=== PATIENT | male | born 1955 | race Caucasian/White ===

== ENCOUNTER 2020-03-20 20:43 | Inpatient (IN) | payer MEDICARE, OTHER ==
[~2020-03-20] VITALS: Ht 185.4 cm; Wt 107.0 kg
--- NOTE | ~2020-03-20 | EKG ---
[facility] [address] [facility] [facility] [place], [place] [address] Draft EK completed, results pending confirmation PATIENT NAME: PREMA AVILA Electrocardiogram DATE OF : 57 PHYSICIAN: PRELIMINARY REPORT #: [id number] REPORT IS CONFIDENTIAL AND NOT TO BE RELEASED WITHOUT AUTHORIZATION
[2020-03-20] MEDS ORDERED: LANTUS100 UNITS/ SUB-Q ×2 (21:15→21:17)
[2020-03-20] MEDS ORDERED: NOVOLIN N100 UNIT/1 SUB-Q (21:16)
[2020-03-20] MEDS ORDERED: NOVOLOG100 UNIT/2 SUB-Q ×2 (21:18→21:19)
[2020-03-20] MEDS ORDERED: LIPITOR40 MG PO (21:19)
[2020-03-20] MEDS ORDERED: LISINOPRIL10 MG PO (21:20)
[2020-03-20] MEDS ORDERED: DEPLIN-ALGAL O1 EAC1 PO (21:20)
[2020-03-20] MEDS ORDERED: OMEPRAZOLE20 MG PO (21:21)
[2020-03-20] MEDS ORDERED: TRADJENTA5 MG PO (21:21)
[2020-03-20] MEDS ORDERED: DEPAKOTE500 MG PO (21:22)
[2020-03-20] MEDS ORDERED: BENZTROPINE MESY1 MG PO (21:22)
--- NOTE | 2020-03-21 02:05 | NUR ---
PT AWAKE AND ALERT AT ED. PT WAS BROUGHT TO CCU VIA STRETCHER WITH STAFF MIDWIFE WITH BELONGINGS. ASSESSMENT COMPLETE, LABS DRAWN. PT WAS GIVEN FOOD DUE TO BEING HUNGRY. PT SALINE LOCKED IV BOLUS HAD COMPLETED IN THE ED. PT REPORTED A TOOTH-ACHE OF 7/10 PAIN. PRN TYLENOL WAS ADMINISTERED. PT HAD A BLOODY NOSE, TISSUE WAS USED TO PLUG NOSE, PT STATES HE GETS BLOODY NOSES ON OCCASION. PT REPORTED NO FURTHER NEEDS WHEN ASKED. BED IN LOWEST POSITION, CALL LIGHT WITHIN REACH, PT NOW WATCHING TV WITH STAFF MIDWIFE IN ROOM. WILL CONTINUE PLAN OF CARE.
--- NOTE | 2020-03-21 03:52 | NUR ---
PT LAYING ON RIGHT SIDE SLEEPING. RESPIRATIONS UNLABORED. CAREGIVER IN ROOM AWAKE ON CELLPHONE. PT. LEFT UNDISTURBED. WILL CONTINUE PLAN OF CARE.
--- NOTE | 2020-03-21 04:51 | NUR ---
RESPONDED TO PT. COUGHING IN ROOM. PT GIVEN PRN MEDICATION FOR COUGH (SEE MAR). PT REPORTS SHORTNESS OF BREATH AFTER COUGHING FIT. PT. ASSESSED AND LABS DRAWN. AFTERWARDS PT STILL LOOKED SHORT OF BREATH BUT PT. DENIED FEELING SHORT OF BREATH. SPO2 REMAINED IN THE HIGH 90'S PT STILL ON ROOM AIR. PT REPORTS NO FURTHER NEEDS AT THIS TIME. SPO2 97%, ON ROOM AIR, RR OF 25. WILL CONTINUE PLAN OF CARE. BED IN LOWEST POSITION, CALL LIGHT WITHIN REACH.
--- NOTE | 2020-03-21 06:20 | NUR ---
RESPONDED TO PT CALL LIGHT. PT WANTED SOMETHING TO DRINK. DIET SODA BROUGHT TO PT. PT ASSESSED. PT IV WAS OUT OF RIGHT FOREARM AND WAS INTACT, SHEETS WERE BLOODY. PT STATES HE DOESNT KNOW HOW IV CAME OUT. IV INTACT AND DC'D. NEW IV INSERTED ON LEFT FOREARM. PT TOLERATED WELL. SHEETS CHANGED. LAB DRAWN. PT REPORTS NO FURTHER NEEDS AT THIS TIME ASIDE FROM ORDERING HIS BREAKFAST WHICH WILL BE ORDERED. PT NOW LAYING IN BED WATCHING TV WITH CAREGIVER AT BEDSIDE. WILL CONTINUE PLAN OF CARE. CALL LIGHT IN REACH, BED IN LOWEST POSITION.
--- NOTE | 2020-03-21 07:15 | NUR ---
Report received, orders acknowledged. Patient sleeping in bed, respirations even and unlabored. [facility] staff in room with patient. Call light within reach.
[2020-03-21] MEDS ORDERED: INVEGA SUS117 MG/0.7 IM (07:44)
--- NOTE | 2020-03-21 07:45 | EKG ---
[facility] [address] [facility] [place], [place] [address] Signed Sinus tachycardia Right bundle branch block Abnormal ECG No previous ECGs available Confirmed by CHAD TINOCO MD ([id number]) on 03/21/2020 7:45:20 AM Electronically Signed By: CHAD TINOCO MD 03/21/20 0745 PATIENT NAME: PREMA AVILA Electrocardiogram DATE OF : 57 PHYSICIAN: CHAD TINOCO MD REPORT #: [id number] REPORT IS CONFIDENTIAL AND NOT TO BE RELEASED WITHOUT AUTHORIZATION
--- NOTE | 2020-03-21 08:30 | NUR ---
Patient laying in bed, respirations even and unlabored. Vital signs taken, assessment complete. AM medications given. Patient reports 8/10 pain in his teeth, prn tylenol. Patient up to toilet independently, denies SOB or dizziness with ambulation, steady on feet. Returns to bed, breakfast delivered. BG of 208. 3 units of insulin lispro given, along with 40 units of insulin glargine. Patient requests diet pepsi, which is accommodated. [facility] staff in room at bedside. Patient denies further needs, call light within reach.
--- NOTE | 2020-03-21 10:10 | NUR ---
Patient sleeping in bed on right side, respirations even and unlabored. SpO2 of 95% on RA. Patient rouses easily to voice, Egnar Reina staff at bedside. Call light within reach.
--- NOTE | 2020-03-21 10:20 | NUR ---
Patient up to toilet independently, voids 500 mls of urine. Returns to bed, denies further needs. Call light within reach.
--- NOTE | 2020-03-21 12:10 | NUR ---
Patient sitting up in bed, respirations even and unlabored. SpO2 of 97% on RA, HR in the 80's. BG of 238, 5 units of insulin lispro given. Patient denies further needs, call light within reach.
[2020-03-21] MEDS ORDERED: ACETAMINOPHEN325 M1 PO (13:51)
--- NOTE | 2020-03-21 13:54 | NUR ---
Patient up to shower independently, steady on feet. No SOB noted. Medications given (see MAR). Patient now laying in bed watching tv. Denies needs, call light within reach.
--- NOTE | 2020-03-21 14:30 | NUR ---
Patient temp of 100.6 noted, 650 mg of tylenol given. Patient shaking in bed and states "I feel cold." Warm blankets provided. Caregiver in room at bedside.
--- NOTE | 2020-03-21 17:00 | NUR ---
Patient febrile at 102.1 degrees. Patient laying in bed watching tv. Dinner delivered, patient denies needs at this time. Call light within reach.
--- NOTE | 2020-03-21 17:28 | NUR ---
THIS RN ABLE TO GIVE PT HIS INSULIN MEDS WHEN HE CAME TO THE DOOR. PT STEADY ON HIS FEET AND ELENI, PTS CAREGIVER IN ROOM AND ABLE TO ASSIST PT TO THE DOOR WITH ALL THE CABLES.
--- NOTE | 2020-03-21 18:00 | NUR ---
Patient febrile at 102.[address] Bond notified, no new orders. Will continue to monitor.
--- NOTE | 2020-03-21 18:47 | NUR ---
THIS RN INTO PTS ROOM TO START PT ON THE CONTINOUS IV FLUID. PT STATES THAT HE FEELS A LOT BETTER SINCE COMING TO THE HOSPITAL. PT DOES STATE THAT HE STILL REQUIRES HELP STANDING UP. PT HAS A CAREGIVER IN ROOM.
--- NOTE | 2020-03-21 19:51 | NUR ---
REPORT RECEIVED FROM ADRIANE RN, WILL CONTINUE PLAN OF CARE.
--- NOTE | 2020-03-21 21:43 | NUR ---
PT LAYING IN BED AWAKE AND ORIENTED WITH CDARETAKER AT BEDSIDE. PT REPORTS FEELING CHILLS, TEMP WAS TAKEN AND WAS 101.0. PRN TYLENOL GIVEN. WHEN ASKED PT. REPORTED NO PAIN OR NAUSEA. MEDICATIONS ADMINISTERED ORDERED (SEE MAR). INSULIN ADMINISTERED PER SLIDING SCALE. IV FLUIDS INFUSING AT ORDERED RATE. PT TAKEN OFF OF CARDIAC MONITORS PER ORDERS. PT REPORTS NO FURTHER NEEDS WHEN ASKED. CALL LIGHT IN REACH BY PT., BED IN LOWEST POSITION. WILL CONTINUE PLAN OF CARE.
--- NOTE | 2020-03-21 23:38 | NUR ---
PT LAYING IN BED. PT STATED THAT HE HAD GONE TO THE BATHROOM WITH THE HELP OF HIS STROKE BELT SANDER OPERATOR TO URINATE. PT NOW LAYING IN BED WATCHING TV WITH STROKE BELT SANDER OPERATOR AT BEDSIDE. IV FLUIDS INFUSING ORDERED. TEMPERATURE RECHECKED AND WAS 98.6. PT WAS GIVEN A SNACK AND DIET SODA HE HAD ASKED FOR THEM. PT REPORTED NO FURTHER NEEDS WHEN HE WAS ASKED. WILL CONTINUE PLAN OF CARE. CALL LIGHT IN REACH, BED IN LOWEST POSITION.
--- NOTE | 2020-03-22 03:10 | NUR ---
PT SLEEPING ON RIGHT SIDE. RESPIRATIONS EVEN AND UNLABORED. INSURANCE OFFICE MANAGER IN ROOM ON BEDSIDE CHAIR AWAKE. PT. LEFT UNDISTURBED. WILL CONTINUE PLAN OF CARE.
--- NOTE | 2020-03-22 05:19 | NUR ---
RESPONDED TO CALL LIGHT. PT WAS SLUMPED OVER ON BED WITH ENVIRONMENT COORDINATOR AT BEDSIDE. ACCORDING TO THE ENVIRONMENT COORDINATOR AND PT. THE PT. HAD GOTTEN UP TO GO TO THE BATHROOM TO VOID. AFTER STARTING TO WALK BACK THE PT. HAD TO SIT DOWN ON THE FOOT OF THE BED HE FELT DIZZY AND WEAK. THIS RN AND THE ENVIRONMENT COORDINATOR HELPED THE PT. BACK UP ON HIS FEET AND REPOSITIONED HIM ON THE BED. THE PT. HAD A PALLOR COLOR AND WAS DROWSY. AYSHA GRAJEDA WAS CALLED FOR ASSISTANCE. DR. MASCORRO WAS NOTIFIED. LABS WERE DRAWN AND THE PT IV FLUIDS WERE INCREASED PER DR MASCORRO'S ORDERS. SEE MAR. PRN TYLENOL WAS ALSO GIVEN PT. TEMP WAS 101.2. PT REPORTED NO FURTHER NEEDS AFTER THE EVENT. PT WAS MORE ALERT AND ORIENTED AFTERWARDS. PT NOW LAYING IN BED RESTING WATCHING TV. ENVIRONMENT COORDINATOR AT BEDSIDE. WILL CONTINUE PLAN OF CARE. CALL LIGHT ON PT WITHIN REACH, BED IN LOWEST POSITION.
--- NOTE | 2020-03-22 06:18 | NUR ---
RESPONDED TO PT CALL LIGHT. PT INFORMED ME HIS IV PUMP WAS BEEPING AND HE WANTED SOME DIET SODA. SODA BROUGHT TO PT. IV BOLUS OF LR COMPLETE. PT NOW HAS LR INFUSING AT 75ML/HR. MEDICATIONS ADMINISTERED (SEE MAR). TEMP NOW 98.9. PT REPORTS NO PAIN AFTER PRN TYLENOL WELL. PT STATES HE STILL FEELS WEAK AND CONGESTED. PT ALERT AND ORIENTED X3. PT REPOSITIONED IN BED WITH HELP OF POWER BRAKE OPERATOR. PT REPORTS NO FURTHER NEEDS AT THIS TIME. WILL CONTINUE PLAN OF CARE. CALL LIGHT IN REACH, BED IN LOWEST POSITION.
--- NOTE | 2020-03-22 07:30 | NUR ---
Report received, orders acknowledged. Patient sitting up in bed, alert and oriented. Patient waves at nurse through glass door. Denies needs, call light within reach.
--- NOTE | 2020-03-22 08:00 | NUR ---
Patient sitting up in bed, alert and oriented. Patient able to state location, year, month, day of week, and event. Vital signs taken, assessment complete. BG of 169, a total of 5 units of insulin lispro given (1 unit SS, 4 units with meal). AM medications given. Patient able to swallow and take PO meds. Breakfast delivered, ate 90% of meal. Patient denies feeling weak or dizzy this AM after syncopal episode last night. Importance of sitting on edge of bed for several minutes prior to ambulation discussed, patient agreeable. Patient states "I got up real fast this morning. Made me dizzy." LR infusing at 75 mls/hr. Caregiver in room at bedside. Denies needs, call light within reach.
--- NOTE | 2020-03-22 10:20 | NUR ---
Patient requests can of pop, which is accommodated. Caregiver reports patient up to toilet approximately 30 minutes prior. Patient had sat on edge of bed for several minutes prior to ambulation. Patient reports slight dizziness with ambulation but much better. Patient states "Hey, when are you going to come in and talk to me?" Patient is told RN will be in room to deliver lunch and check blood sugar around noon. Call light within reach.
--- NOTE | 2020-03-22 11:44 | NUR ---
Patient sitting up in bed watching tv. Caregiver in room at bedside. Patient gives a thumbs-up through the glass door, denies needs. Call light within reach.
--- NOTE | 2020-03-22 12:40 | NUR ---
Dr. Bond in room to assess patient and discuss POC. Plan to do orthostatics test after lunch, patient agreeable.
[2020-03-22] MEDS ORDERED: HALLS3.2 MG MM (13:46)
[2020-03-22] MEDS ORDERED: KETOCONAZOLE120 ML TOP (13:48)
[2020-03-22] MEDS ORDERED: MULTIVITAMINS1 EAC8 PO (13:55)
[2020-03-22] MEDS ORDERED: BISMATROL262 MG/15 PO (14:00)
--- NOTE | 2020-03-22 14:57 | NUR ---
Patient laying in bed, states "I feel horrible." Temp of 100.2, 650 mg of tylenol given. Patient lower left arm appears swollen and is tender to the touch. Warm compress applied to left arm. IV site D/C'd. Will look for new IV site. Orthostatic hypotension test complete. Results in next note. Patient to toilet, able to ambulate independently. Voids 700 mls. Returns to bed, warm compress to left arm. Caregiver in room at bedside.
--- NOTE | 2020-03-22 15:09 | NUR ---
ORTHOSTATIC HYPOTENSION TEST Laying - BP of 132/82 (98), HR of 85 Standing at 1 minute - BP of 127/85 (99), HR of 101 Standing at 3 minutes - BP of 132/75 (93), HR of 107
--- NOTE | 2020-03-22 17:37 | NUR ---
Patient sitting up in bed watching tv. Vital signs taken, assessment complete. Temp of 98.6. BG of 274, 9 units of insulin lispro given (5 per SS, 4 units w/meals) and 33 units of insulin lantus. Patient requests to take a shower, which will be accomodated due to decreasing dizziness with ambulation. Patient compliant with sitting at edge of bed prior to ambulation for several minutes. Dinner delivered, patient denies needs at this time, call light within reach.
--- NOTE | 2020-03-22 18:30 | NUR ---
Patient up to shower, independently with no dizziness noted. New linens put on bed and new patient gown put in place. Patient saline locked due to negative orthostatics test. Patient returned to bed, denies needs. Call light within reach.
--- NOTE | 2020-03-22 21:30 | NUR ---
PT LAYING IN BED AWAKE AND ORIENTED. PT MEDICATION ADMINISTERED ORDERED (SEE MAR). PT SALINE LOCKED. 5 UNITS OF INSULIN GIVEN PER SLIDING SCALE. WHEN ASKED PT STATES HE HAS NO PAIN. PT AFEBRILE WITH A TEMP OF 99.1 AND PT REPORTS NO FEELINGS OF CHILLS. PT REPORTS NO FURTHER NEEDS AT THIS TIME, WILL CONTINUE PLAN OF CARE. CALL LIGHT IN REACH, BED IN LOWEST POSITION, WILL CONTINUE PLAN OF CARE.
--- NOTE | 2020-03-22 23:10 | NUR ---
PT SLEEPING ON RIGHT SIDE. RESPIRATIONS NOTED AND ARE EVEN AND UNLABORED. BAR MACHINE OPERATOR IN ROOM WELL ON THE BEDSIDE CHAIR. PT ON ROOM AIR, SPO2 AT 95%. PT LEFT UNDISTURBED. WILL CONTINUE PLAN OF CARE.
--- NOTE | 2020-03-23 00:25 | NUR ---
RESPONDED TO PT CALL LIGHT. PT STATES HE HAD TO GO URINATE. THE PT WAS HELPED UP. PT LEFT IN SITTIN POSITION FOR A TIME HE STATED HE FELT LIGHTHEADED GETTING UP. AFTER IT SUBSIDED PT RIGIDLY WALKED OVER TO VOID IN THE BATHROOM TOILET. PT WAS ABLE TO WASH HIS HANDS AND WALK BACK ON HIS OWN. PT STATED HE FELT LIGHTHEADED WHEN HE WAS LAYING IN THE BED. THE PT'S HR ELEVEATED TO THE 110-120'S DURING THE EVENT AND WENT BACK DOWN TO THE 90'S ONCE HE WAS BACK IN THE BED. SPO2 REMAINED IN THE 90'S ON ROOM AIR. PT REPORTS NO PAIN WHEN ASKED AND NO SHORTNESS OF BREATH. PT GIVEN A DRINK HE REQUESTED. PT REPORTS NO FURTHER NEEDS WHEN ASKED. PT NOW IN BED WITH LIGHTS OFF, TECHNICIAN TELECOMMUNICATION SYSTEMS IN THE ROOM AT BEDSIDE CHAIR. WILL CONTINUE PLAN OF CARE. BED IN LOWEST POSITION, CALL LIGHT WITHIN REACH.
--- NOTE | 2020-03-23 02:30 | NUR ---
PT IN BED LAYING IN BED SLEEPING, RESPIRATIONS UNLABORED. PT LEFT UNDISTURBED. POINTER MACHINE OPERATOR IN ROOM AT BEDSIDE CHAIR. WILL CONTINUE PLAN OF CARE.
--- NOTE | 2020-03-23 04:23 | NUR ---
RESPONDED TO PT CALL LIGHT. PT HAD TO VOID. PT HELPED UP OUT OF BED. HE WAS ABLE TO WALK OVER TO BATHROOM UNASSISTED AND BACK TO THE BED. HR WAS IN THE 120-130'S DURING THIS TIME. PT HAD TO SIT DOWN FOR A WHILE HE STATED HE FELT LIGHTHEADED. PT GIVEN PRN TYLENOL FOR HIS ELEVATED TEMPERATURE (SEE VS). PT ASSESSED, LABS DRAWN. PT REPORTS NO FURTHER NEEDS AT THIS TIME. PT NOW LAYING IN BED WITH CORKING MACHINE OPERATOR IN ROOM. WILL CONTINUE PLAN OF CARE, CALL LIGHT IN REACH, BED IN LOWEST POSITION.
--- NOTE | 2020-03-23 06:32 | NUR ---
PT LAYING IN BED AWAKE AND ALERT. ORDERED MEDICATIONS ADMINISTERED (SEE MAR). PT ASKED TO WALK AROUND, NON SLIP SOCKS WERE PLACED ON PT AND HE MADE A FEW LAPS AROUND HIS ROOM. HR WENT UP TO THE 110'S. PT DENIED DIFFICULTY BREATHING BUT TOWARDS THE END STATED HE WAS FEELING LIGHT HEADED. PT GOT BACK INTO THE BED AND IS NOW LAYING IN BED. BLOOD BANK WORKER IN ROOM AT BEDSIDE. PT REPORTS NO FURTHER NEEDS AT THIS TIME, WILL CONTINUE PLAN OF CARE. BED IN LOWEST POSITION, CALL LIGHT WITHIN REACH.
--- NOTE | 2020-03-23 09:05 | NUR ---
RECIEVED REPORT FROM NIGHT NURSE AND CARE RESUMED. PATIENT ASSESSMENT COMPLETED. TEMP. OF 99.3. PT. REPORTS 9/10 PAIN IN RUQ AND RLQ. A FEW MINUTES LATER THE PATIENT DENIED PAIN IN THIS AREA. RIGHT IV SITE SALINE LOCKED. MORNING MEDS GIVEN. BLOOD GLUCOSE WAS 168 AND 5 UNITS TOTAL OF HUMALOG GIVEN. PT. RECEIVED BREAKFAST AND REQUESTED TO HAVE A SHOWER AFTER LUNCH. PT. LEFT RESTING IN BED WITH INDUSTRIAL MAINTENANCE TECH AT HIS SIDE.
--- NOTE | 2020-03-23 10:08 | NUR ---
PATIENT REPORTS 8/10 PAIN IN HIS TEETH. TEMP IS 98.5. TYLENOL GIVEN. IV SITE FLUSHES WELL AND WNL. PT. RESTING IN BED WITH POWER TECHNICIAN AT BEDSIDE.
--- NOTE | 2020-03-23 10:56 | NUR ---
PATIENT HEAD TEACHER PADS REPLACED. PATIENT DENIES PAIN. PT. LEFT RESTING IN BED WITH SENIOR TECHNICAL MANAGER AT BEDSIDE.
--- NOTE | 2020-03-23 12:30 | NUR ---
PATIENT ASSESSMENT COMPLETED. BLOOD GLUCOSE WAS 166 AND GIVEN 7 UNITS TOTAL OF HUMALOG. PT. DENIES PAIN AND IS ORIENTED AND ALERT. TEMP. 88.4. IV SITE WNL AND SALINE LOCKED. LUNCH GIVEN. PT DENIES FURTHER NEED AND LEFT RESTING IN BED WITH AVIATION TACTICAL READINESS OFFICER AT BEDSIDE. PLAN TO SHOWER AFTER LUNCH.
--- NOTE | 2020-03-23 13:15 | NUR ---
PATIENT ASKED FOR ICE AND REQUESTED TO TAKE SHOWER AT 1400.
--- NOTE | 2020-03-23 13:42 | NUR ---
PT UNDER PRECAUTIONS, CG AT BS, DR MASCORRO IN. WILL FOLLOW
--- NOTE | 2020-03-23 14:20 | NUR ---
PATIENT STATED HE WAS HEARING "TRANSMITTERS" AND THAT HE HAD HEARD THEM THE LAST TIME HE WAS IN THE HOSPITAL FOR A TYLENOL OVERDOSE.
--- NOTE | 2020-03-23 14:39 | NUR ---
PATIENT UP TO THE SHOWER WITH STANDBY ASSIST. HE SHOWERED STANDING INDEPENDENTLY AND TOLERATED WELL WITH MILD DIZZINESS. PT. BRUSHED HIS TEETH AND AMBULATED BACK TO BED INDEPENDENTLY. PT. DENIES PAIN. TEMP. 98.4. VOIDED 300ML CLEAR YELLOW URINE IN TOILET. LEFT RESTING IN BED WITH FRONT OFFICE ADMINISTRATOR AT BEDSIDE.
--- NOTE | 2020-03-23 16:00 | NUR ---
Called and spoke with the RN from the [facility]. She states Bill can return tomorrow. They will just need written orders. Updated he has had some fevers, they have been treated with Tylenol. He is not requiring 02 at this time. Will call and confirm time tomorrow. Dr. Bond notified.
--- NOTE | 2020-03-23 16:49 | EKG ---
[facility] [address] [facility] [place] [address] Signed Normal sinus rhythm Right bundle branch block Abnormal ECG When compared with ECG of 22-MAR-2020 04:04, (Unconfirmed) ST no longer depressed in Lateral leads Confirmed by STANLEY MASCORRO MD ([id number]) on 03/23/2020 4:49:11 PM Electronically Signed By: STANLEY MASCORRO MD 03/23/20 1649 PATIENT NAME: PREMA AVILA Electrocardiogram DATE OF : 57 PHYSICIAN: STANLEY MASCORRO MD REPORT #: [id number] REPORT IS CONFIDENTIAL AND NOT TO BE RELEASED WITHOUT AUTHORIZATION
--- NOTE | 2020-03-23 17:38 | NUR ---
PATIENT ASSESSMENT COMPLETED AND PT. BROUGHT HIS DINNER. PT. TEMP IS 99.4. WILL CONTINUE TO MONITOR TEMP. VOIDED 400ML CLEAR YELLOW URINE IN TOILET. PT. LEFT RESTING WITH BERRY PICKER BEDSIDE.
--- NOTE | 2020-03-23 17:41 | NUR ---
PATIENT TEMP IS 100.4 AND PT. SHIVERING. PT GIVEN PRN TYLENOL.
--- NOTE | 2020-03-23 21:25 | NUR ---
PT LAYING IN BED WITH CONSULTING MANAGER AT BEDSIDE. PT IS AWAKE AND ORIENTED. PT GIVEN ORDERED MEDICATIONS AND GIVEN 5 UNITS OF INSULIN PER SLIDING SCALE (SEE MAR). PT PROVIDED WITH ICE WATER. PT REPORTS NO SHORTNESS OF BREATH. WHEN ASSESSING PT STATED HE FELT DIZZY WHILE TAKING DEEP BREATHS FOR LUNG ASSESSMENT. PT RECOVERED QUICKLY AFTER FINISHING THE ASSESSMENT. PT REPORTS NO FURTHER NEEDS WHEN ASKED. CALL LIGHT IN REACH, BED IN LOWEST POSITION, WILL CONTINUE PLAN OF CARE.
--- NOTE | 2020-03-23 23:00 | NUR ---
PT SLEEPING ON SIDE. RESPIRATIONS EVEN AND UNLABORED. PUBLIC SERVICE DIRECTOR IN ROOM WITH PT AT BEDSIDE CHAIR. PT LEFT UNDISTURBED. WILL CONTINUE PLAN OF CARE.
--- NOTE | 2020-03-23 23:59 | NUR ---
PT COMING BACK FROM BATHROOM AND WAS SITTING AT BED. PT STATED HE WAS FEELING DIZZY. PT SAT AT BED FOR A FEW MINUTES BEFORE LAYING BACK DOWN. PT ASSESSED. PRN TYLENOL GIVEN FOR ELEVATED TEMPERATURE (SEE MAR). PT REPORTS NO PAIN OR CHILLS WHEN ASKED. PT REPORTS NO DIFFICULTY BREATHING WHEN ASKED. PT ON ROOM AIR, SPO2 93%. PT REPORTS NO FURTHER NEEDS AT THIS TIME AND WAS PROVIDED WITH WATER. WILL CONTINUE PLAN OF CARE. CALL LIGHT IN REACH, BED IN LOWEST POSITION. LEAD PRESSER IN ROOM WITH PT AT BEDSIDE CHAIR.
--- NOTE | 2020-03-24 01:17 | NUR ---
PT IN BED SLEEPING. RESPIRATIONS EVEN AND UNLABORED. SPO2 93%, RR 23. PT ON ROOM AIR. WATERFRONT DIRECTOR IN ROOM AT BEDSIDE CHAIR. PT LEFT UNDISTURBED. WILL CONTINUE PLAN OF CARE.
--- NOTE | 2020-03-24 03:35 | NUR ---
PT IN BED SLEEPING. RESPIRATIONS EVEN AND UNLABORED. PT ON ROOM AIR, SPO2 AT 92%. COMPUTER REPAIR INSTRUCTOR IN ROOM WITH PT AT BEDSIDE CHAIR. PT LEFT UNDISTURBED. WILL CONTINUE PLAN OF CARE.
--- NOTE | 2020-03-24 04:10 | NUR ---
RESPONDED TO PT CALL LIGHT. PT STATED THAT HE HAD USED THE RESTROOM. PT REPORTS FEELING WEAK AND HAVING DIFFICULTY SITTING UP TO STAND. PT ALSO REPORTS FEELING LIGHTHEADED STILL AFTER WALKING TO BATHROOM AND BACK TO VOID. PT REPORTS NO DIFFICULTY BREATHING. PT HR WAS ELEVATED WHILE UP TO THE 130'S. PT ASSESSED AND IV FLUSHED. PT PROVIDED WITH FRESH ICE WATER HE REQUESTED. PT REPORTS NO PAIN WHEN ASKED. WILL CONTNINUE PLAN OF CARE. CALL LIGHT IN REACH, BED IN LOWEST POSITION. EARLY INTERVENTION SPECIALIST IN ROOM AT BEDSIDE CHAIR.
--- NOTE | 2020-03-24 06:58 | NUR ---
PT LAYING IN BED SLEEPING. PT GIVEN ORDERED MEDICATIONS. PT REPORTED FEELING SHORT OF BREATH AFTER BEING ASKED. SPO2 WAS AROUND 92, PT PLACED ON 2L O2 NC. PT TEMP WAS 99.6. PT REPORTS NO FURTHER NEEDS, WILL CONTINUE PLAN OF CARE.
--- NOTE | 2020-03-24 08:00 | NUR ---
PATIENT ASSESSMENT COMPLETED. TEMP WAS 99.9. PT. ON ROOM AIR AND O2 SAT 91%. PT. DENIES PAIN AND REPORTS HE HAS BEEN USING INCENTIVE SPIROMETER. REFUSED ANA HOSE. BREAKFAST IN THE ROOM AND PATIENT LEFT WITH ECONOMIST RESEARCH ASSISTANT AT BEDSIDE.
--- NOTE | 2020-03-24 09:40 | NUR ---
DR. MASCORRO IN TO SEE THE PATIENT.
--- NOTE | 2020-03-24 11:15 | NUR ---
PATIENT CHECKED ON THROUGH DOOR. LUNCH ORDERED AND PATIENT DENIES PAIN AND SOB. ON RA WITH O2 SAT 93%.
--- NOTE | 2020-03-24 12:58 | NUR ---
PATIENT ASSESSMENT COMPLETED. GIVEN 11 TOTAL UNITS OF HUMALOG. TEMP WAS 99.4. PT. DENIES PAIN AND IS ORIENTED. IV SITE FLUSHES WELL AND WNL. PT. HAS AMBULATED 3X TO THE BATHROOM THIS MORNING AND DENIES DIZZINESS WITH AMBULATION. 02 SAT 93% ON RA. PT. EDUCATED ON PRONING.PT. LEFT RESTING IN BED WITH FOUNTAIN BRUSH ASSEMBLER AT BEDSIDE.
--- NOTE | 2020-03-24 14:15 | NUR ---
PATIENT COMPLETED A SHOWER WITH BAR CATCHER AND CARGIVER. TOLERATED AMBULATING AND STANDING WELL AND DENIES DIZZINESS. ASSISTED WITH REMOVING FAMILY ENGAGEMENT SPECIALIST PADS.
--- NOTE | 2020-03-24 14:50 | NUR ---
PATIENT DISCHARGED IN WHEELCHAIR WITH PERSONAL BELONGINGS AND DISCHARGE PAPERWORK. PICKED UP BY WHEELCHAIR VAN. PT. LEFT ON ROOM AIR. IV SITE DC'D PRIOR. TOMMY WAS CALLED WITH DISCHARGE INFO AND GIVEN REPORT.
--- NOTE | 2020-03-24 15:22 | NUR ---
Set pt. up for a shower. Caregiver assisted him with the shower. Bed linens changed. no other needs at this time.
--- NOTE | 2020-03-24 15:49 | NUR ---
PATIENT ASSESSMENT COMPLETED. PT. TEMP 100.4. TYLENOL GIVEN. PT. DENIES PAIN, SOB, AND DIZZINESS WITH AMBULATION. LUNGS DIM IN BASES BILAT. O2 SAT IS 90% ON RA. PT. HAD A LARGE BM IN THE TOILET. PT. REPORTS HE HAS BEEN LYING ON HIS SIDES AND CANNOT PRONE ON HIS STOMACH. PT. LEFT RESTING IN BED WITH TARGETING ACQUISITION OFFICER AT BEDSIDE.
--- NOTE | 2020-03-24 20:50 | NUR ---
SHIFT REPORT RECEIVED FROM AYSHA CALLAWAY. ASSESSMENT COMPLETED AT THIS TIME, LIMITED DUE TO PAPR PPE. PT DENIES PAIN. REPORTS OCCASIONAL SOB WITH ACTIVITY, REMAINS ON RA. VITAL SIGNS STABLE, AFEBRILE. PT REPORTS FEELING LESS DIZZY WHEN STANDING. VOIDING QS. IV INTACT, PATENT, AND SALINE LOCKED. CB, 4 UNITS SLIDING SCALE ADMINISTERED. PT REPORTS MILD UPSET STOMACH, MILK AND CRACKERS PROVIDED PER REQUEST. CAREGIVER REMAINS AT BEDSIDE. CALL LIGHT AND BELONGINGS WITHIN REACH.
--- NOTE | 2020-03-24 23:14 | NUR ---
PT APPEARS TO BE SLEEPING AT THIS TIME, NO APPARENT DISTRESS. RESPIRATIONS EVEN AND UNLABORED. CAREGIVER REMAINS AT BEDSIDE.
--- NOTE | 2020-03-25 00:37 | NUR ---
PT CONTINUES TO SLEEP AT THIS TIME. NO APPARENT DISTRESS, RESPIRATIONS EVEN AND UNLABORED ON ROOM AIR. CAREGIVER REMAINS AT BEDSIDE. WILL ALLOW FOR REST AND CONTINUE TO MONITOR.
--- NOTE | 2020-03-25 01:15 | NUR ---
PT AWAKE TO USE BATHROOM. VITAL SIGNS OBTAINED. TEMP 99.2, WILL CONTINUE TO MONITOR. PT CONTINUES TO DENY PAIN, NO COMPLAINTS OF SOB AT THIS TIME. CAREGIVER AT BEDSIDE.
--- NOTE | 2020-03-25 04:18 | NUR ---
PT SLEEPING AT THIS TIME, NO APPARENT DISTRESS. RESPIRATIONS EVEN AND UNLABORED. CAREGIVER AT BEDSIDE.
--- NOTE | 2020-03-25 06:20 | NUR ---
PT UP TO BATHROOM WITH SBA FROM CAREGIVER, VOIDED AND RETURNED TO BED. PT REPORTS MILD SOB AND DIZZINESS WITH ACTIVITY. DENIES PAIN, PRN TYLENOL GIVEN FOR TEMP OF 100.1. REMAINS ON RA, SATS 92%. NO OTHER CHANGES FROM PREVIOUS ASSESSMENT. BREAKFAST ORDER CALLED TO KITCHEN.
--- NOTE | 2020-03-25 08:40 | NUR ---
PT IS ALERT AND ORIENTED X4, PT DENIES PAIN, NAUSEA, AND SOB AT THIS TIME. IV SITE IS INTACT, NO REDNESS OR SWELLING NOTED, FLUSHES EASILY. PT REPORTS FEELING ANXIOUS ABOUT GOING HOME. ENCOURAGED PT, AND DISCUSSED SUPPORTS THAT ARE IN PLACE AT HOME. PT VITALS WNL. PT SITTING UP IN BED EATING BREAKFAST.
--- NOTE | 2020-03-25 10:22 | NUR ---
PT REQUESTED NEW LINENS FOR BED, WAS GIVEN LINENS, THEN CHANGES HIS OWN BEDDING. PT STEADY ON HIS FEET, CAREGIVER IS AT THE BEDSIDE.
[2020-03-25] MEDS ORDERED: LANTUS100 UNITS/ SUB-Q ×2 (11:26)
[2020-03-25] MEDS ORDERED: NOVOLOG100 UNIT/2 SUB-Q (11:27)
[2020-03-25] MEDS ORDERED: TESSALON PERLE100 MG PO (11:28)
[2020-03-25] MEDS ORDERED: TYLENOL EXTRA500 MG PO (11:28)
--- NOTE | 2020-03-25 12:00 | NUR ---
Dc summary, orders faxed to Rn at the [facility]. Called and updated, pt may return with the cg which has stayed in his room. Orders accepted. Rn notified pt can return. [place] with signed orders and dc summary given.
--- NOTE | 2020-03-25 12:36 | NUR ---
PT REMAINS ALERT AND ORIENTED X4, ALL VITALS ARE WNL. IV SITE IN LEFT ARM REMOVED IN PREPARATION FOR DISCHARGE HOME. THE TIP OF THE CATH WAS INTACT, NO SWELLING OR REDNESS AT SITE, PT CHYNA REMOVAL WELL. PT IS FINISHED EATING LUNCH, AND IS READY TO PUT ON HIS OWN CLOTHES. CAREGIVER AT THE BEDSIDE.
--- NOTE | 2020-03-25 12:52 | NUR ---
FULL REPORT CALLED TO AYSHA KIMBROUGH, AT [facility] [phone]. ALL QUESTIONS ANSWERED.
--- NOTE | 2020-03-25 12:54 | NUR ---
PT LEAVING CCU TO GO HOME WITH CAREGIVER. PT TRANSFERS VIA WHEEL CHAIR, [employer]. PT HAS ALL PERSONAL BELONGINGS WITH HIM.
== END 2020-03-25 13:00 | disposition home or self-care (01) | DRG 177 ==
LOC: ED 20:43 → CCU 23:39
PROVIDERS: ADMIT Internal Medicine; ATTEND Internal Medicine
DX: U07.1 COVID-19 (principal); J12.89 Other viral pneumonia; F20.0 Paranoid schizophrenia; E87.5 Hyperkalemia; E11.22 Type 2 diabetes mellitus with diabetic chronic kidney disease; I12.9 Hypertensive chronic kidney disease with stage 1 through stage 4 chronic kidney disease, or unspecified chronic kidney disease; N18.30 Chronic kidney disease, stage 3 unspecified; F41.9 Anxiety disorder, unspecified; E78.5 Hyperlipidemia, unspecified; I95.1 Orthostatic hypotension; Z79.899 Other long term (current) drug therapy; Z79.4 Long term (current) use of insulin
CPT/HCPCS: 71045; 80048; 80053; 80164; 81001; 82550; 82803; 83036; 83605; 83735; 84484; 85025; 93005; 93010; 99285-25; J1815; J2405; J7030; J7121

== ENCOUNTER 2020-04-02 15:29 | Emergency (ER) | payer MEDICARE, OTHER ==
[~2020-04-02] VITALS: Ht 185.4 cm; Wt 106.6 kg
[~2020-04-02 15:29] MED LIST: ACETAMINOPHEN325 M1 PO; BENZTROPINE MESY1 MG PO; BISMATROL262 MG/15 PO; DEPAKOTE500 MG PO; DEPLIN-ALGAL O1 EAC1 PO; HALLS3.2 MG MM; INVEGA SUS117 MG/0.7 IM; KETOCONAZOLE120 ML TOP; LANTUS100 UNITS/ SUB-Q; LIPITOR40 MG PO; LISINOPRIL10 MG PO; MULTIVITAMINS1 EAC8 PO; NOVOLIN N100 UNIT/1 SUB-Q; NOVOLOG100 UNIT/2 SUB-Q; OMEPRAZOLE20 MG PO; TESSALON PERLE100 MG PO; TRADJENTA5 MG PO; TYLENOL EXTRA500 MG PO
--- OUTSIDE RECORDS SUMMARY | 2020-04-02 15:32 | XMS ---
PreManage Notification: PREMA AVILA Security Manager Enrollment Events No recent Security Events currently on file CRITERIA MET - [facility] - 2 Visits in 30 Days CARE PROVIDERS BEN TEE Physician Hogshead Builder Current PHONE: Unknown Kae has no Care Guidelines for this patient. Juan VISIT COUNT (12 MO.) 2 [facility] TOTAL 2 NOTE: Visits indicate total known visits. ED/UCC VISIT TRACKING (12 MO.) 04/02/2020 15:29 [facility] [place] TYPE: Emergency COMPLAINT: - BLOOD SUGAR PROBLEM 03/20/2020 20:44 [facility] [place] TYPE: Emergency COMPLAINT: - ALTERED LOC INPATIENT VISIT TRACKING (12 MO.) 03/20/2020 23:39 [facility] [place] TYPE: Critical Care COMPLAINT: - HYPERKALEMIA/ACUTE KIDNEY INJ/COVID DIAGNOSES: - Other viral pneumonia - Type 2 diabetes mellitus with diabetic chronic kidney disease - Chronic kidney disease, stage 3 unspecified - COVID-19 - Paranoid schizophrenia - Orthostatic hypotension - Hyperlipidemia, unspecified - group home (current) use of insulin - Hyperkalemia - Anxiety disorder, unspecified - Hypertensive chronic kidney disease with stage 1 through stage 4 chronic kidney disease, or unspecified chronic kidney disease - Other assisted (current) drug therapy [email or web address]
== END 2020-04-02 18:39 | disposition home or self-care (01) ==
LOC: ED 15:29
DX: E11.65 Type 2 diabetes mellitus with hyperglycemia (principal); F41.9 Anxiety disorder, unspecified; F20.9 Schizophrenia, unspecified; Z79.4 Long term (current) use of insulin; Z79.899 Other long term (current) drug therapy
CPT/HCPCS: 80053; 85025; 96374; 99284-25; J1815; J7030

== ENCOUNTER 2020-04-24 19:33 | Emergency (ER) | payer MEDICARE, OTHER ==
[~2020-04-24] VITALS: Ht 185.4 cm; Wt 106.6 kg
--- OUTSIDE RECORDS SUMMARY | 2020-04-24 19:36 | XMS ---
PreManage Notification: PREMA AVILA Security Laboratory Development Technician Events No recent Security Events currently on file CRITERIA MET - [facility] - 2 Visits in 30 Days CARE PROVIDERS BEN TEE Physician Certified Health Education Specialist Current PHONE: Unknown TERE [facility] 04/05/2020-Current PHONE: [phone] Kae has no Care Guidelines for this patient. Juan VISIT COUNT (12 MO.) [address] [place] [address] TOTAL 3 NOTE: Visits indicate total known visits. ED/UCC VISIT TRACKING (12 MO.) 04/24/2020 19:34 [facility] [place] TYPE: Emergency COMPLAINT: - POSSIBLE ALERGIC REACTION TO SHOT 04/02/2020 15:29 [facility] [place] TYPE: Emergency COMPLAINT: - BLOOD SUGAR PROBLEM DIAGNOSES: - Anxiety disorder, unspecified - buttermaker (current) use of insulin - Schizophrenia, unspecified - Other termite technician (current) drug therapy - Type 2 diabetes mellitus with hyperglycemia 03/20/2020 20:44 [facility] [place] TYPE: Emergency COMPLAINT: - ALTERED LOC INPATIENT VISIT TRACKING (12 MO.) 03/20/2020 23:39 [facility] [place] TYPE: Critical Care COMPLAINT: - HYPERKALEMIA/ACUTE KIDNEY INJ/COVID DIAGNOSES: - Other viral pneumonia - Type 2 diabetes mellitus with diabetic chronic kidney disease - Chronic kidney disease, stage 3 unspecified - COVID-19 - Paranoid schizophrenia - Orthostatic hypotension - Hyperlipidemia, unspecified - residential (current) use of insulin - Hyperkalemia - Anxiety disorder, unspecified - Hypertensive chronic kidney disease with stage 1 through stage 4 chronic kidney disease, or unspecified chronic kidney disease - Other longterm (current) drug therapy [email or web address]
[2020-04-24] MEDS ORDERED: LANTUS SOL100 UNIT/1 SUB-Q ×2 (20:08)
[2020-04-24] MEDS ORDERED: NOVOLOG FL100 UNIT/1 SUB-Q (20:09)
== END 2020-04-24 21:54 | disposition home or self-care (01) ==
LOC: ED 19:33
DX: T88.1XXA Other complications following immunization, not elsewhere classified, initial encounter (principal); R53.1 Weakness; T50.Z95A Adverse effect of other vaccines and biological substances, initial encounter; Z79.4 Long term (current) use of insulin; Z79.899 Other long term (current) drug therapy; E11.9 Type 2 diabetes mellitus without complications
CPT/HCPCS: 80053; 81001; 85025; 99284; J7030

== ENCOUNTER 2020-08-08 11:02 | Emergency (ER) | payer MEDICARE, OTHER ==
[~2020-08-08] VITALS: Ht 185.4 cm; Wt 108.9 kg
[~2020-08-08 11:02] MED LIST changes: +LANTUS SOL100 UNIT/1 SUB-Q; +NOVOLOG FL100 UNIT/1 SUB-Q
[2020-08-08] MEDS ORDERED: NITROGLYCERIN0.4 MG SL (11:31)
[2020-08-08] MEDS ORDERED: ACETAMINOPHEN500 MG PO (11:32)
[2020-08-08] MEDS ORDERED: METOPROLOL SUCC25 MG PO (11:33)
[2020-08-08] MEDS ORDERED: BRILINTA90 MG PO (11:33)
[2020-08-08] MEDS ORDERED: ST. JOSEPH ASPI81 MG PO (11:34)
[2020-08-08] MEDS ORDERED: L-METHYLFOLATE15 M1 PO (11:36)
[2020-08-08] MEDS ORDERED: VITAMIN D350 MC3 PO (11:39)
--- NOTE | 2020-08-08 16:34 | EKG ---
[facility] [address] [facility] [place] [address] Signed Normal sinus rhythm Right bundle branch block T wave abnormality, consider inferior ischemia Abnormal ECG When compared with ECG of 22-MAR-2020 04:05, T wave inversion more evident in Inferior leads Confirmed by SARAY BERNSTEIN DO ([id number]) on 08/08/2020 4:33:56 PM Electronically Signed By: SARAY BERNSTEIN DO 08/08/20 1634 PATIENT NAME: PREMA AVILA Electrocardiogram DATE OF : 57 PHYSICIAN: SARAY BERNSTEIN DO REPORT #: [id number] REPORT IS CONFIDENTIAL AND NOT TO BE RELEASED WITHOUT AUTHORIZATION
== END 2020-08-08 13:34 | disposition home or self-care (01) ==
LOC: ED 11:02
DX: R06.00 Dyspnea, unspecified (principal); E11.9 Type 2 diabetes mellitus without complications; Z79.899 Other long term (current) drug therapy; Z79.4 Long term (current) use of insulin; Z79.82 Long term (current) use of aspirin
CPT/HCPCS: 71045; 80053; 83880; 84484; 85025; 85379; 93005; 93010; 99285-25

== ENCOUNTER 2021-04-11 13:37 | Emergency (ER) | payer MEDICARE, OTHER ==
[~2021-04-11] VITALS: Ht 185.4 cm; Wt 110.1 kg
[~2021-04-11 13:37] MED LIST changes: +ACETAMINOPHEN500 MG PO; +BRILINTA90 MG PO; +L-METHYLFOLATE15 M1 PO; +METOPROLOL SUCC25 MG PO; +NITROGLYCERIN0.4 MG SL; +ST. JOSEPH ASPI81 MG PO; +VITAMIN D350 MC3 PO
[2021-04-11] MEDS ORDERED: FENOFIBRATE134 MG PO (14:53)
[2021-04-11] MEDS ORDERED: L-METHYLFOLATE15 M1 PO (14:54)
[2021-04-11] MEDS ORDERED: BRILINTA90 MG PO (14:55)
== END 2021-04-11 16:49 | disposition home or self-care (01) ==
LOC: ED 13:37
DX: R04.0 Epistaxis (principal); E11.9 Type 2 diabetes mellitus without complications; Z79.899 Other long term (current) drug therapy; Z79.4 Long term (current) use of insulin; Z79.82 Long term (current) use of aspirin
CPT/HCPCS: 30903; 99283-25

== ENCOUNTER 2023-11-25 17:44 | Emergency (ER) | payer MEDICARE, OTHER ==
[~2023-11-25] VITALS: Ht 185.4 cm; Wt 110.0 kg
[~2023-11-25 17:44] MED LIST changes: +FENOFIBRATE134 MG PO
--- OUTSIDE RECORDS SUMMARY | 2023-11-25 17:45 | XMS ---
PreManage Notification: PREMA AVILA Security Planning Intern Events No recent Security Events currently on file CRITERIA MET - [facility] PROVIDERS -, [facility] Dentist: Bridge Maintenance Worker [facility] PHONE: [phone] -[place]- Dentist: Bridge Maintenance Worker [facility] Dental [facility] PHONE: [phone] Kae has no Care Guidelines for this patient. Juan VISIT COUNT (12 MO.) 1 [facility] TOTAL 1 NOTE: Visits indicate total known visits. ED/UCC VISIT TRACKING (12 MO.) 11/25/2023 17:44 [facility] [place] TYPE: Emergency COMPLAINT: - DENTAL PAIN INPATIENT VISIT TRACKING (12 MO.) No inpatient visits to display in this time frame [id number]
[2023-11-25] MEDS ORDERED: HUMALOG100 UNIT/2 SUB-Q (18:01)
[2023-11-25] MEDS ORDERED: INVEGA SUS234 MG/1.5 IM (18:01)
[2023-11-25] MEDS ORDERED: FENOFIBRATE160 MG PO (18:02)
[2023-11-25] MEDS ORDERED: BENZTROPINE ME0.5 MG PO (18:02)
[2023-11-25] MEDS ORDERED: TRULICITY3 MG/0.5 M SQ (18:02)
[2023-11-25] MEDS ORDERED: DOCUSATE SODIU100 MG PO (18:03)
[2023-11-25] MEDS ORDERED: GABAPENTIN100 MG PO (18:03)
[2023-11-25] MEDS ORDERED: PENICILLIN V P500 MG PO (18:37)
[2023-11-25] MEDS ORDERED: PENICILLIN V POTASSIUM 500 MG TAB PO ONE (18:45)
[2023-11-25 18:54] VITALS: BP 144/81
== END 2023-11-25 18:54 | disposition home or self-care (01) ==
LOC: ED 17:44
DX: K08.89 Other specified disorders of teeth and supporting structures (principal); E11.9 Type 2 diabetes mellitus without complications; I25.2 Old myocardial infarction; F41.9 Anxiety disorder, unspecified; F20.9 Schizophrenia, unspecified; Z79.4 Long term (current) use of insulin; Z79.82 Long term (current) use of aspirin; Z79.899 Other long term (current) drug therapy

== ENCOUNTER 2024-01-29 17:59 | Emergency (ER) | payer MEDICARE, OTHER ==
[~2024-01-29] VITALS: Ht 185.4 cm; Wt 124.7 kg
[~2024-01-29 17:59] MED LIST changes: +BENZTROPINE ME0.5 MG PO; +DOCUSATE SODIU100 MG PO; +FENOFIBRATE160 MG PO; +GABAPENTIN100 MG PO; +HUMALOG100 UNIT/2 SUB-Q; +INVEGA SUS234 MG/1.5 IM; +PAXLOVID 150-11 EAC1 PO; +PENICILLIN V P500 MG PO; +TRULICITY3 MG/0.5 M SQ
--- OUTSIDE RECORDS SUMMARY | 2024-01-29 18:06 | XMS ---
PreManage Notification: PREMA AVILA Security Administrative Aide Events No recent Security Events currently on file CRITERIA MET - [facility] - 2 Visits in 30 Days CARE PROVIDERS -, [facility] Dentist: Gunnery/Ordnance Officer Current [place] PHONE: [phone] -[place]- Dentist: Gunnery/Ordnance Officer [facility] PHONE: [phone] Kae has no Care Guidelines for this patient. Juan VISIT COUNT (12 MO.) [address] [place] [address] TOTAL 3 NOTE: Visits indicate total known visits. ED/UCC VISIT TRACKING (12 MO.) 01/29/2024 17:[address] [facility] [place] TYPE: Emergency COMPLAINT: - CHEST PAIN 01/07/2024 17:32 [facility] [place] TYPE: Emergency COMPLAINT: - WEAKNESS DIAGNOSES: - Anxiety disorder, unspecified - COVID-19 - Fever, unspecified - senior living (current) use of aspirin - senior living (current) use of insulin - Old myocardial infarction - Other long term care administrator (current) drug therapy - Schizophrenia, unspecified - Type 2 diabetes mellitus without complications 11/25/2023 17:[address] [facility] [place] TYPE: Emergency COMPLAINT: - DENTAL PAIN DIAGNOSES: - Anxiety disorder, unspecified - senior living (current) use of aspirin - termite treater helper (current) use of insulin - Old myocardial infarction - Other long term care administrator (current) drug therapy - Other specified disorders of teeth and supporting structures - Schizophrenia, unspecified - Type 2 diabetes mellitus without complications INPATIENT VISIT TRACKING (12 MO.) No inpatient visits to display in this time frame [email or web address]
[2024-01-29] MEDS ORDERED: NITROGLYCERIN 0.4 MG SUBL SL PRN ×2 (18:15→20:45)
[2024-01-29 18:22] LABS: BASOPHILS 0.5 % (0-2); EOSINOPHILS 2.3 % (0-6); HEMATOCRIT 32.5 % (35.0-50.0); HEMOGLOBIN 11.3 g/dL (12.0-18.0); LYMPHOCYTES 21.5 % (24-44); MCH 32.9 (27-36); MCHC 34.7 g/dl (30-36); MONOCYTES 9.3 % (0-12); NEUTROPHILS 66.4 % (39-80); PLATELET COUNT 180 K/uL (140-440); RBC 3.42 M/ul (4.3-5.7); RDW 13.4 (10.5-15.0)
[2024-01-29 18:32] LABS: INR 1.01 (0.80-1.30); PROTIME 12.9 Sec (11.2-14.2)
[2024-01-29 18:41] LABS: PARTIAL THROMBOPLASTIN TIME 20.7 Sec (22.9-41.3)
[2024-01-29 18:44] LABS: ALBUMIN 3.4 g/dL (3.4-5.0); ALBUMIN/GLOBULIN RATIO 0.85 (1.1-2.4); ANION GAP 13.1 (7-21); BILIRUBIN, TOTAL 0.2 ng/dL (0.2-1.0); BUN/CREATININE RATIO 14.76 (6.0-28.6); CALCIUM 9.3 mg/dL (8.5-10.1); CREATININE, SERUM 2.71 mg/dL (0.70-1.30); MAGNESIUM 1.8 mg/dL (1.8-2.4); POTASSIUM 4.1 mmol/L (3.5-5.1); PROTEIN, TOTAL 7.4 g/dL (6.4-8.2)
[2024-01-29] MEDS ORDERED: HEPARIN SOD,PORK IN 0.45% NACL 500 ML IV SCH (20:15)
[2024-01-29] MEDS ORDERED: HEParin SOD (PORCINE) 5,000 UNIT/ML VIAL IV ONE (20:15)
[2024-01-29] MEDS ORDERED: NITROGLYCERIN 50MG/D5W 250 ML IV SCH (20:45)
[2024-01-29] MEDS ORDERED: LACTATED RINGER'S 1,000 ML IV SCH (20:45)
[2024-01-29] MEDS ORDERED: FAMOTIDINE 20 MG/ 2 ML VIAL IV ONE (20:45)
[2024-01-29 21:29] LABS: BILIRUBIN, URINE NEGATIVE (negative); BLOOD/HGB, URINE NEGATIVE (Negative); KETONE, URINE NEGATIVE (Negative); LEUK ESTERASE, URINE NEGATIVE (negative); NITRITE, URINE NEGATIVE (negative); PH, URINE 5.5 (5-7)
[2024-01-29 21:54] LABS: AMPHETAMINES, URINE NEGATIVE (NEGATIVE); BARBITURATES, URINE NEGATIVE (NEGATIVE); BENZODIAZEPINE, URINE NEGATIVE (NEGATIVE); BUPRENORPHINE, URINE NEGATIVE (NEGATIVE); CANNABINOID, URINE NEGATIVE (NEGATIVE); COCAINE, URINE NEGATIVE (NEGATIVE); ECSTASY, URINE NEGATIVE (NEGATIVE); FENTANYL, URINE NEGATIVE (NEGATIVE); METHADONE, URINE NEGATIVE (NEGATIVE); OPIATES, URINE NEGATIVE (NEGATIVE); OXYCODONE, URINE NEGATIVE (NEGATIVE); PHENCYCLIDINE, URINE NEGATIVE (NEGATIVE)
[2024-01-30] VITALS: BP 140/79
--- NOTE | 2024-01-31 21:38 | EKG ---
[facility] [address] [facility] [place] [address] Signed Normal sinus rhythm Right bundle branch block T wave abnormality, consider inferior ischemia Abnormal ECG When compared with ECG of 07-JAN-2024 17:44, Sinus rhythm has replaced Wide QRS rhythm Vent. rate has decreased BY 41 BPM Confirmed by Cedric Figueroa MD ([id number]) on 01/31/2024 9:38:16 PM Electronically Signed By: CEDRIC FIGUEROA DO 01/31/24 2138 PATIENT NAME: AUSTINPREMA Electrocardiogram DATE OF : 57 PHYSICIAN: CEDRIC FIGUEROA DO REPORT #: [id number] REPORT IS CONFIDENTIAL AND NOT TO BE RELEASED WITHOUT AUTHORIZATION
--- NOTE | 2024-01-31 21:39 | EKG ---
[facility] [address] [facility] [place] [address] Signed Normal sinus rhythm Right bundle branch block T wave abnormality, consider inferior ischemia Abnormal ECG When compared with ECG of 29-JAN-2024 18:02, (Unconfirmed) No significant change was found Confirmed by Cedric Figueroa MD ([id number]) on 01/31/2024 9:39:09 PM Electronically Signed By: CEDRIC FIGUEROA DO 01/31/24 2139 PATIENT NAME: AUSTINPREMA Electrocardiogram DATE OF : 57 PHYSICIAN: CEDRIC FIGUEROA DO REPORT #: [id number] REPORT IS CONFIDENTIAL AND NOT TO BE RELEASED WITHOUT AUTHORIZATION
== END 2024-01-30 | disposition short-term general hospital (02) ==
LOC: ED 17:59
PROVIDERS: Emergency Medicine; Internal Medicine
DX: I21.4 Non-ST elevation (NSTEMI) myocardial infarction (principal); E11.9 Type 2 diabetes mellitus without complications; I25.2 Old myocardial infarction; Z85.828 Personal history of other malignant neoplasm of skin; Z79.4 Long term (current) use of insulin; Z79.85 Long-term (current) use of injectable non-insulin antidiabetic drugs; Z79.82 Long term (current) use of aspirin; Z79.899 Other long term (current) drug therapy
CPT/HCPCS: 36415; 71045; 80053; 80307; 81003; 83735; 83880; 84484; 85025; 85379; 85610; 85730; 93005; 93010; 96374; 96375; 99285-25; J1644; J7121

== ENCOUNTER 2024-02-19 22:33 | Emergency (ER) | payer MEDICARE, OTHER ==
[~2024-02-19] VITALS: Ht 185.4 cm; Wt 108.6 kg
--- OUTSIDE RECORDS SUMMARY | 2024-02-19 22:41 | XMS ---
PreManage Notification: PREMA AVILA Security Illustrator Set Events No recent Security Events currently on file CRITERIA MET - [facility] - 2 Visits in 30 Days CARE PROVIDERS -, [facility] Dentist: Spray Drier Operator Current [place] PHONE: [phone] -[place]- Dentist: Spray Drier Operator [facility] PHONE: [phone] Kae has no Care Guidelines for this patient. Juan VISIT COUNT (12 MO.) [address] [place] [address] TOTAL 4 NOTE: Visits indicate total known visits. ED/UCC VISIT TRACKING (12 MO.) 02/19/2024 22:35 [facility] [place] TYPE: Emergency COMPLAINT: - SOB 01/29/2024 17:59 [facility] [place] TYPE: Emergency COMPLAINT: - CHEST PAIN DIAGNOSES: - Chest pain, unspecified - USP (current) use of aspirin - regional intermodal truck driver (current) use of insulin - Long-term (current) use of injectable non-insulin antidiabetic drugs - Non-ST elevation (NSTEMI) myocardial infarction - Old myocardial infarction - Other assisted (current) drug therapy - Personal history of other malignant neoplasm of skin - Type 2 diabetes mellitus without complications 01/07/2024 17:32 [facility] [place] TYPE: Emergency COMPLAINT: - WEAKNESS DIAGNOSES: - Anxiety disorder, unspecified - COVID-19 - Fever, unspecified - USP (current) use of aspirin - regional intermodal truck driver (current) use of insulin - Old myocardial infarction - Other assisted (current) drug therapy - Schizophrenia, unspecified - Type 2 diabetes mellitus without complications 11/25/2023 17:44 [facility] [place] TYPE: Emergency COMPLAINT: - DENTAL PAIN DIAGNOSES: - Anxiety disorder, unspecified - regional intermodal truck driver (current) use of aspirin - USP (current) use of insulin - Old myocardial infarction - Other manager long term care (current) drug therapy - Other specified disorders of teeth and supporting structures - Schizophrenia, unspecified - Type 2 diabetes mellitus without complications INPATIENT VISIT TRACKING (12 MO.) 01/30/2024 01:18 [facility] [place] TYPE: Medical Surgical COMPLAINT: - nstemi DIAGNOSES: 0. Chest pain, unspecified 1. Non-ST elevation (NSTEMI) myocardial infarction 2. Type 2 diabetes mellitus with diabetic neuropathy, unspecified 3. Type 2 diabetes mellitus with diabetic nephropathy 4. Schizoaffective disorder, unspecified 5. Atherosclerotic heart disease of [place] coronary artery without angina pectoris 6. Essential (primary) hypertension 7. Gastro-esophageal reflux disease without esophagitis 8. Pure hypercholesterolemia, unspecified 9. Hyperlipidemia, unspecified 10. Type 2 diabetes mellitus with hyperglycemia 11. Other constipation 12. Iron deficiency anemia, unspecified 13. Morbid (severe) obesity due to excess calories 14. USP (current) use of insulin 15. Presence of coronary angioplasty implant and graft 16. Personal history of COVID-19 17. regional intermodal truck driver (current) use of aspirin 18. Personal history of other malignant neoplasm of skin 19. Body mass index [BMI] 31.0-31.9, adult 20. Family history of ischemic heart disease and other diseases of the circulatory system [id number]
[2024-02-19] MEDS ORDERED: LANTUS100 UNITS/ SUB-Q (23:04)
[2024-02-19] MEDS ORDERED: LOSARTAN POTASS25 MG PO (23:06)
[2024-02-19] MEDS ORDERED: PLAVIX75 MG PO (23:06)
[2024-02-19] MEDS ORDERED: INVEGA SUS156 MG/1 M IM (23:08)
[2024-02-19] MEDS ORDERED: LIBTAYO350 MG/7 M IV (23:09)
[2024-02-19 23:12] LABS: BASOPHILS 0.6 % (0-2); HEMATOCRIT 33.9 % (35.0-50.0); HEMOGLOBIN 11.4 g/dL (12.0-18.0); LYMPHOCYTES 30.7 % (24-44); MCH 32.3 (27-36); MCHC 33.7 g/dl (30-36); MCV 95.8 fl (81-99); MONOCYTES 11.1 % (0-12); NEUTROPHILS 52.6 % (39-80); PLATELET COUNT 211 K/uL (140-440); RBC 3.54 M/ul (4.3-5.7); RDW 12.9 (10.5-15.0)
[2024-02-19] MEDS ORDERED: FERROUS SULFAT325 MG PO (23:12)
[2024-02-19] MEDS ORDERED: ATORVASTATIN CA40 MG PO (23:14)
[2024-02-19] MEDS ORDERED: ACID CONTROLLER10 MG PO (23:14)
[2024-02-19] MEDS ORDERED: TRAMADOL HCL50 MG PO (23:15)
[2024-02-19 23:27] LABS: ALBUMIN 3.5 g/dL (3.4-5.0); ALBUMIN/GLOBULIN RATIO 0.8 (1.1-2.4); ANION GAP 13.2 (7-21); BILIRUBIN, TOTAL 0.2 ng/dL (0.2-1.0); BUN/CREATININE RATIO 13.24 (6.0-28.6); CALCIUM 9.7 mg/dL (8.5-10.1); CREATININE, SERUM 3.02 mg/dL (0.70-1.30); POTASSIUM 4.2 mmol/L (3.5-5.1); PROTEIN, TOTAL 7.9 g/dL (6.4-8.2)
[2024-02-20] MEDS ORDERED: DAPTOmycin 500 MG/10 ML VIAL IV ONE (00:45)
[2024-02-20] MEDS ORDERED: AMP/SULBACTAM SOD 3 GM in SODIUM CHLORIDE 0.9% 100 ML IV ONE (00:45)
[2024-02-20] MEDS ORDERED: BACTRIM DS TAB1 EACH PO (00:48)
[2024-02-20] MEDS ORDERED: AMOX TR-K CLV1 EAC1 PO (00:48)
[2024-02-20] MEDS ORDERED: HYDROCODON-ACE1 EA10 PO (00:48)
[2024-02-20] MEDS ORDERED: AMP/SULBACTAM SOD 3 GM VIAL IV ONE (00:50)
[2024-02-20] MEDS ORDERED: HYDROCODONE BIT/ACETAMINOPHEN 5/325 MG 1 TAB HOME.PACK PO PRN (01:00)
[2024-02-20] MEDS ORDERED: HYDROmorphone HCL 1 MG/ML SYR IV PRN (01:00)
[2024-02-20] MEDS ORDERED: ondansetron HCL 4 MG/2 ML VIAL IV ONE (01:00)
[2024-02-20 01:21] VITALS: BP 126/95
--- NOTE | 2024-02-21 19:07 | EKG ---
[facility] [address] [facility] [place] [address] Signed Normal sinus rhythm Right bundle branch block T wave abnormality, consider inferior ischemia Abnormal ECG When compared with ECG of 29-JAN-2024 20:43, QRS duration has increased Confirmed by Alejandro Javier MD ([id number]) on 02/21/2024 7:07:36 PM Electronically Signed By: ALEJANDRO JAVIER MD 02/21/241906 PATIENT NAME: PREMA AVILA Electrocardiogram DATE OF : 57 PHYSICIAN: ALEJANDRO JAVIER MD REPORT #: [id number] REPORT IS CONFIDENTIAL AND NOT TO BE RELEASED WITHOUT AUTHORIZATION
== END 2024-02-20 02:53 | disposition home or self-care (01) ==
LOC: ED 22:33
PROVIDERS: Emergency Medicine
DX: R22.0 Localized swelling, mass and lump, head (principal); E11.9 Type 2 diabetes mellitus without complications; I25.2 Old myocardial infarction; Z79.4 Long term (current) use of insulin; Z79.85 Long-term (current) use of injectable non-insulin antidiabetic drugs; Z79.82 Long term (current) use of aspirin; Z79.01 Long term (current) use of anticoagulants; Z79.899 Other long term (current) drug therapy
CPT/HCPCS: 36415; 70490; 71045; 80053; 85025; 93005; 93010; 96374; 96375; 99285-25; A9270; J0295; J0878; J2405

== ENCOUNTER 2024-08-03 13:03 | Emergency (ER) | payer MEDICARE, OTHER ==
[~2024-08-03] VITALS: Ht 185.4 cm; Wt 109.6 kg
[~2024-08-03 13:03] MED LIST changes: +ACID CONTROLLER10 MG PO; +AMOX TR-K CLV1 EAC1 PO; +ATORVASTATIN CA40 MG PO; +BACTRIM DS TAB1 EACH PO; +FERROUS SULFAT325 MG PO; +HYDROCODON-ACE1 EA10 PO; +INVEGA SUS156 MG/1 M IM; +LIBTAYO350 MG/7 M IV; +LOSARTAN POTASS25 MG PO; +PLAVIX75 MG PO; +TRAMADOL HCL50 MG PO
[2024-08-03] MEDS ORDERED: NOVOLOG FL100 UNIT/1 SUB-Q (13:41)
[2024-08-03] MEDS ORDERED: OZEMPIC1 MG/0.71 SQ (13:41)
[2024-08-03] MEDS ORDERED: ATIVAN1 MG PO (13:46)
[2024-08-03] MEDS ORDERED: HYDROCODON-ACE1 EA11 PO (15:14)
[2024-08-03] MEDS ORDERED: FAMCICLOVIR500 MG PO (15:14)
[2024-08-03] MEDS ORDERED: ACETAMINOPHEN 325 MG TAB PO ONE (15:15)
[2024-08-03] MEDS ORDERED: ACYCLOVIR 400 MG TAB PO ONE (15:15)
[2024-08-03] MEDS ORDERED: HYDROCODONE/ACETA 7.5/325 TAB PO ONE (15:15)
[2024-08-03 15:23] VITALS: BP 145/87
== END 2024-08-03 15:23 | disposition home or self-care (01) ==
LOC: ED 13:03
DX: B02.9 Zoster without complications (principal); E11.9 Type 2 diabetes mellitus without complications; I25.2 Old myocardial infarction; Z79.02 Long term (current) use of antithrombotics/antiplatelets; Z79.82 Long term (current) use of aspirin; Z79.4 Long term (current) use of insulin; Z79.899 Other long term (current) drug therapy
CPT/HCPCS: 99283; A9270